=== PATIENT | female | born 1950 | race Caucasian/White ===

== ENCOUNTER → 2020-06-03 16:09 | Outpatient (CLI) | payer OTHER, SELFPAY ==
--- NOTE | 2020-06-03 16:13 | DI.MRI.S_ITS ---
PROCEDURE: MR FOOT RT WO CON INDICATIONS: Metatarsalgia, right foot TECHNIQUE: Noncontrast sagittal T1 spin echo and T2 fast spin echo with fat saturation, long-axis T1 spin echo and T2 fast spin echo with fat saturation, short-axis T1 spin echo and T2 fast spin echo with fat saturation through the forefoot. COMPARISON: None. FINDINGS: Image quality: There is mild inhomogeneous fat saturation. Bones and joints: There is a relatively nondisplaced healing fracture in the 4th metatarsal shaft. There is callus formation along the fracture margins but the fracture line remains visible. Associated bone marrow edema and mild periosteal edema are demonstrated along the metatarsal shaft. Findings are suggestive of a healing stress fracture. No evidence of stress fracture or stress reaction within the remaining metatarsals. There is moderate degeneration within the medial midfoot along the articulations between the medial cuneiform and the navicular as well as middle cuneiform with bone marrow edema and subchondral cystic changes. There is mild degeneration at the 1st metatarsophalangeal joint with mild subchondral edema. The sesamoid bones appear in expected positions, without internal edema. No intraosseous lesions. Soft tissues: There is mild edema within the lumbrical muscles between the 2nd and 3rd metatarsals. The visualized plantar foot muscles otherwise demonstrate normal signal and bulk. Visualized flexor and extensor tendons appear intact, without tenosynovitis. The distal insertions of the peroneus brevis and longus tendons appear intact. The principal Lisfranc ligament appears intact. No soft tissue ganglion cysts. There is minimal intermetatarsal bursal fluid within the 1st and 2nd metatarsal interspaces. Sagittal images demonstrate no evidence for plantar plate tears. IMPRESSION: 1. Healing relatively nondisplaced fracture of the 4th metatarsal shaft likely representing a stress fracture. 2. No other definite evidence of stress reaction or stress fracture in the remaining metatarsals. 3. Mild muscle edema within the lumbricals between the 2nd and 3rd metatarsals likely representing reactive changes or mild strains. 4. Moderate degeneration in the medial midfoot. Dictated by: Saleem Peoples M.D. on 06/06/2020 at 9:49 Approved by: Saleem Peoples M.D. on 06/06/2020 at 10:02
== END ==
PROVIDERS: Referring Provider Podiatrist; Visit Provider Podiatrist
DX: M77.41 Metatarsalgia, right foot (principal); S92.344D Nondisplaced fracture of fourth metatarsal bone, right foot, subsequent encounter for fracture with routine healing; M19.071 Primary osteoarthritis, right ankle and foot; M20.41 Other hammer toe(s) (acquired), right foot; M79.671 Pain in right foot; R26.2 Difficulty in walking, not elsewhere classified; X58.XXXD Exposure to other specified factors, subsequent encounter
CPT/HCPCS: 73718